=== PATIENT | male | born 1950 | race Caucasian/White ===

== ENCOUNTER 2023-06-03 20:12 | Observation (INO) | payer MEDICARE, SELFPAY ==
[2023-06-03] VITALS (16 sets, daily range): BP systolic 139–163; BP diastolic 89–104; PULSE 78–90; RESP 12–16; TEMP 36.7; O2SAT 92–98; BMI 25.8
--- NOTE | 2023-06-03 20:35 | CRLHL7_ITS ---
For Patients: As a result of the Century Cures Act, medical imaging exams and procedure reports are released immediately into your electronic medical record. You may view this report before your referring provider. If you have questions, please contact your health care provider. INDICATION: Amnesia TECHNIQUE: CT Head without i.v. contrast. Coronal and sagittal reformats were obtained. COMPARISON: None FINDINGS: CSF space: Unremarkable for age. Brain: There is a trace left anterior parafalcine subdural hematoma and trace left frontal temporal subdural hematoma noted measuring 2 mm. No mass-effect or midline shift is seen. Mild diffuse cortical atrophy is noted. The brain parenchyma is otherwise normal in appearance with preservation of the mendez-white matter junction. Calvarium: The visualized paranasal sinuses are well aerated. The mastoid air cells are clear. The visualized orbits are grossly unremarkable. The calvarium is unremarkable in appearance with no fractures identified. IMPRESSION: 1. There is a trace left anterior parafalcine subdural hematoma and trace left frontal temporal subdural hematoma noted measuring 2 mm. The findings were discussed with Dr. Parra at 9:11 PM. Dictated by Robert Flores MD @ 06/03/2023 9:10:16 PM Please note that all CT scans at this facility use dose modulation, iterative reconstruction, and/or weight-based dosing when appropriate to reduce radiation dose to as low as reasonably achievable. Dictated by: Robert Flores MD @ 06/03/2023 21:13:01 (Electronically Signed)
--- NOTE | 2023-06-03 20:37 | ED.NEUROSD ---
HPI - Neuro Symptoms/Deficit General Time Seen by Provider: 20:37 Date Seen: 06/03/23 Chief Complaint: Neuro Symptoms/Altered Deficit Stated Complaint: Sudden memory loss Time Seen by Provider: 06/03/23 20:21 Source: patient and family Mode of arrival: ambulatory Limitations: no limitations History of Present Illness HPI Narrative: 72-year-old male who comes in today with memory problems. Last known normal was 6:00 p.m., at about 720 p.m. it was noted by family that patient seemed confused. Patient is in town for a wedding, recognizes the person for whom the wedding is being given but not the fiance, cannot tell me how long he has been in town. Repetitive questioning during the interview. Denies headache, vision changes, chest pain, numbness tingling in arms or legs, weakness. Related Data Home Medications Medication Instructions Recorded Confirmed omeprazole 40 mg capsule,delayed 40 mg PO DAILY 06/03/23 06/03/23 release Previous Rx's Medication Instructions Recorded metoprolol tartrate 25 mg tablet 12.5 mg (1/2 x 25 mg) PO BID 14 06/04/23 days #14 tabs Allergies Allergy/AdvReac Type Severity Reaction Status Date / Time No Known Drug Allergies Allergy Verified 06/03/23 20:29 [facility] Medical History (Updated 06/04/23 @ 17:01 by Imelda Kurtz MD) Scoliosis ?M41.9 - Scoliosis, unspecified (ICD-10) Prostate cancer ?C61 - Malignant neoplasm of prostate (ICD-10) GERD (gastroesophageal reflux disease) ?K21.9 - Gastro-esophageal reflux disease without esophagitis (ICD-10) Surgical History (Updated 06/04/23 @ 14:09 by Imelda Kurtz MD) History of prostatectomy ?Z90.79 - Acquired absence of other genital organ(s) (ICD-10) Social History (Updated 06/04/23 @ 17:00 by Imelda Kurtz MD) Narrative: Lives in [place], [place]. 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 What is your current living situation?: I presently have a place to live Problems where you live: no known problems Problems where you live details: no known problems In the past 12 months, utilities in danger of being shut off: no In the past 12 mos, have been you worried that your food would run out before you had money to buy more?: never true In the past 12 mos, the food you bought just didn't last and you didn't have money to buy more?: never true Smoking Status: Never smoker Do you use any of these nicotine containing products: None Second hand tobacco smoke exposure: No How often do you have a drink containing alcohol: never AUDIT-C Alcohol total score: 0 Non-prescribed substance use: denies use Caffeine: Yes (Soda) How often does anyone, including family, friends and others, physically hurt you: never How often does anyone, including family, friends and others, insult or talk down to you: never How often does anyone, including family, friends and others, threaten you with harm: never How often does anyone, including family, friends and others, scream or curse at you: never service: No Exam Narrative: Exam Narrative: General: Well-developed and well-nourished, no acute distress Head: Atraumatic and normocephalic Eyes: Pupils are equal reactive, extraocular motions intact, conjunctiva clear ENT: External nose and ears are normal, posterior pharynx without erythema or exudate Neck: No midline cervical tenderness, full spontaneous range of motion the neck, trachea midline, no adenopathy Heart: Regular rate and rhythm no murmurs or thrills Lungs: Clear to auscultation bilaterally without wheezes or crackles Abdomen: Soft, nontender, nondistended with active bowel sounds Musculoskeletal: No tenderness, deformity, or edema Neurologic: Awake, alert, repetitive questioning and not oriented to place or time, no gross focal neurologic deficits, cranial nerves intact as tested. No visual field deficits, sensation intact throughout. NIHSS 0 Psych: Mood and affect are appropriate Skin: No rashes Const: Vital Signs, click to edit/add: Vital Signs - 24 hr 06/03/23 20:15 06/03/23 20:17 06/03/23 20:26 Temperature 98.0 F Pulse Rate 89 Pulse Rate [Right Pulse Oximeter] 90 Respiratory Rate 16 16 Blood Pressure 163/98 H Blood Pressure [Ri ght Upper Arm] 163/96 H Pulse Oximetry 92 95 Oxygen Delivery Me thod Room Air Room Air 06/03/23 20:26 06/03/23 20:26 06/03/23 20:30 Temperature Pulse Rate 87 Pulse Rate [Right Pulse Oximeter] Respiratory Rate 12 Blood Pressure 159/99 H Blood Pressure [Ri ght Upper Arm] Pulse Oximetry 93 93 93 Oxygen Delivery Me thod Room Air 06/03/23 20:45 06/03/23 21:00 06/03/23 21:16 Temperature Pulse Rate 85 82 82 Pulse Rate [Right Pulse Oximeter] Respiratory Rate 14 12 14 Blood Pressure 150/94 H 142/93 H 140/92 H Blood Pressure [Ri ght Upper Arm] Pulse Oximetry 93 98 97 Oxygen Delivery Me thod 06/03/23 21:31 06/03/23 21:46 06/03/23 22:02 Temperature Pulse Rate 83 84 84 Pulse Rate [Right Pulse Oximeter] Respiratory Rate 12 12 16 Blood Pressure 144/95 H 153/97 H 150/93 H Blood Pressure [Ri ght Upper Arm] Pulse Oximetry 96 94 96 Oxygen Delivery Me thod 06/03/23 22:16 06/03/23 22:31 06/03/23 22:47 Temperature Pulse Rate 86 84 80 Pulse Rate [Right Pulse Oximeter] Respiratory Rate 12 Blood Pressure 139/89 162/99 H 162/104 H Blood Pressure [Ri ght Upper Arm] Pulse Oximetry 94 96 94 Oxygen Delivery Me thod 06/03/23 23:01 06/03/23 23:16 06/03/23 23:32 Temperature Pulse Rate 78 79 82 Pulse Rate [Right Pulse Oximeter] Respiratory Rate 12 Blood Pressure 155/99 H 161/98 H 151/99 H Blood Pressure [Ri ght Upper Arm] Pulse Oximetry 95 95 94 Oxygen Delivery Me thod Course Course Hospital Course: Patient seen and examined, prior records are reviewed. Patient presents with altered mental status, memory problems. No focal weakness, facial asymmetry, decreased sensation, or visual field deficit. Symptoms seem most consistent with transient global amnesia. Care was discussed with Dr. Gonzalez, stroke Neurology who agrees with assessment but recommends follow through with CT and CTA as well as MRI tomorrow. Reevaluation(s) Time of Reevaluation #1: 21:15 Reevaluation #1: Discussed head CT with Dr. Gonzalez, there is a trace parafalcine subdural hematoma and trace left frontal temporal subdural measuring 2 mm. Recommends consultation with Neurosurgery, patient will need to be transferred. Blood pressure is 142/93 and stable, will keep head of bed up. Labs independently and interpreted by me demonstrates normal basic panel, reassuring CBC, normal INR. Discussed finding with family, agreeable to transfer to [place] if beds available. Spoke with Dr. Gardner at [facility], does not recommend transfer at this time. Does recommend repeat CT scan in 6 hours. Time of Reevaluation #2: 00:39 Reevaluation #2: Patient remains stable although blood pressure is a little higher than earlier. Will continue to monitor. Repeat head CT read demonstrates trace parafalcine and left frontal temporal subdural hematoma unchanged from prior exam. Will continue to monitor patient and consider more aggressive blood pressure control. Had a long conversation with patient and family. His symptoms are little bit better although still marked amnesia for events of the past couple of days. Time of Reevaluation #3: 01:27 Reevaluation #3: Discussed with Dr. Cali who recommends blood pressure control to maintain systolic less than 140, does not feel transfer is needed as patient would be observed for blood pressure management and further evaluation in the morning, consider MRI. Labetalol IV ordered, care discussed with Jun e-hospitalist who accepts patient for admission. We discussed need for continued blood pressure management. Vital Signs Vital signs: Initial Vital Signs Pulse Rate 89 06/03/23 20:15 Respiratory Rate 16 06/03/23 20:15 Pulse Oximetry 92 06/03/23 20:15 Oxygen Delivery Method Room Air 06/03/23 20:15 Vital Signs Pulse Rate 89 06/03/23 20:15 Respiratory Rate 16 06/03/23 20:15 Pulse Oximetry 92 06/03/23 20:15 Oxygen Delivery Method Room Air 06/03/23 20:15 Temperature 97.9 F 06/04/23 11:00 Pulse Rate 64 06/04/23 15:00 Respiratory Rate 16 06/04/23 15:00 Blood Pressure 133/94 H 06/04/23 15:00 Pulse Oximetry 98 06/04/23 15:00 Oxygen Delivery Method Room Air 06/04/23 15:00 MDM - Neuro Symptoms/Deficit Lab Data Labs: Lab Results 06/03/23 06/03/23 06/03/23 Range/Units 20:20 20:35 21:26 WBC 6.48 (4.50-11.00) K/uL RBC 5.13 (4.30-5.90) m/uL Hgb 15.1 (13.5-17.5) gm/dL Hct 45.1 (37.0-53.0) % MCV 88 (80-100) fL MCH 29 (26-34) pg MCHC 34 (32-36) gm/dL RDW Coeff of [place] 13.6 (11.5-15.5) % Plt Count 211 (140-440) K/uL Neut % (Auto) 60.0 (42.0-72.0) % Lymph % (Auto) 30.7 (20-44) % [place] % (Auto) 7.6 (0.0-11.0) % Eos % (Auto) 1.1 (0.0-7.0) % Baso % (Auto) 0.3 (0.0-3.0) % Neut # (Auto) 3.89 (1.7-7.0) K/uL Lymph # (Auto) 1.99 (0.90-2.90) K/uL [place] # (Auto) 0.50 (0.00-0.90) K/UL Eos # (Auto) 0.07 (0.00-0.50) K/uL Baso # (Auto) 0.02 (0.00-0.30) K/uL Abs Immat Gran (auto) 0.02 (0.00-0.30) K/uL Imm/Tot Granulo (auto) 0.3 % INR 0.94 (0.91-1.10) APTT 28 (23-33) Seconds Sodium 142 (135-149) mmol/L Potassium 4.0 (3.6-5.1) mmol/L Chloride 105 (96-114) mmol/L Carbon Dioxide 30 (20-32) mmol/L BUN 26 (7-30) mg/dL Creatinine 1.3 (0.5-1.5) mg/dL Estimated Creat Clear 54.59 Estimated GFR 59 ml/min Glucose 124 H (60-115) mg/dL Calcium 9.5 (8.4-10.6) mg/dL Ethyl Alcohol < 0.01 L (0.01-0.03) % Lab Acknowledgement Test Added ECG Data Attestation: I personally reviewed and interpreted this ECG as follows: ECG interpretation date: 06/03/23 ECG interpretation time: 20:28 Prior ECG tracings: not available for review Interpretation: Normal sinus rhythm rate 89, normal intervals, normal axis, nonspecific ST T-wave changes, QTC 442. Critical Care Time Critical Care Time Critical Care Time: Yes (Intracranial hemorrhage) Attestation: The patient required my highest level preparedness to intervene emergently and I personally spent this critical care time directly and personally managing the patient. This critical care time included: Obtaining a history; Examining the patient; Pulse oximetry; Ordering and reviewing of studies; Arranging urgent treatment with development of a management plan; Evaluation of patients response to treatment; Frequent reassessment discussions with other providers. This critical care time was performed to assess and manage the high probability of imminent life-threatening deterioration that could result in multiorgan failure. It was exclusive of separate billable procedures and treating other patients and teaching time. Prolonged critical care due to prolonged observation. In the emergency department with frequent neuro checks and discussion with family Total Critical Care Time in Minutes: 180 Discharge Plan Discharge Clinical Impression: Acute subdural hematoma, TGA (transient global amnesia) Patient Disposition: Admitted As Observation Condition: Stable Activity Level: No strenuous activity Discharge Diet: Regular
[2023-06-03 20:49] LABS: Basophils Absolute Auto 0.02 K/uL (0.00-0.30); Basophils Percent Auto 0.3 % (0.0-3.0); Eosinophils Absolute Auto 0.07 K/uL (0.00-0.50); Eosinophils Percent Auto 1.1 % (0.0-7.0); Hematocrit 45.1 % (37.0-53.0); Hemoglobin* 15.1 gm/dL (13.5-17.5); Immature Granulocytes Abs Auto 0.02 K/uL (0.00-0.30); Immature Granulocytes Pct Auto 0.3 %; Lymphocytes Absolute Auto 1.99 K/uL (0.90-2.90); Lymphocytes Percent Auto 30.7 % (20-44); Mean Corpuscular HGB Conc 34 gm/dL (32-36); Mean Corpuscular Hemoglobin 29 pg (26-34); Mean Corpuscular Volume 88 fL (80-100); Monocytes Percent Auto 7.6 % (0.0-11.0); Neutrophils Absolute Auto 3.89 K/uL (1.7-7.0); Platelet Count* 211 K/uL (140-440); RDW Coefficient of Variation % 13.6 % (11.5-15.5); Red Blood Count 5.13 m/uL (4.30-5.90); White Blood Count* 6.48 K/uL (4.50-11.00)
[2023-06-03 20:50] LABS: Slide Review Reflex No
[2023-06-03 20:52] LABS: Chloride* 105 mmol/L (96-114); Sodium* 142 mmol/L (135-149)
[2023-06-03 20:54] LABS: Creatinine* 1.3 mg/dL (0.5-1.5); Est. Creatinine Clearance* 54.59; Estimated Glomerular Filt Rate 59 ml/min
[2023-06-03 20:54] LABS: INR 0.94 (0.91-1.10); Prothrombin Time 13.1 Seconds
[2023-06-03 20:55] LABS: Blood Urea Nitrogen* 26 mg/dL (7-30); Calcium* 9.5 mg/dL (8.4-10.6); Carbon Dioxide* 30 mmol/L (20-32); Glucose* 124 mg/dL (60-115)
[2023-06-03 20:55] LABS: Partial Thromboplastin Time* 28 Seconds (23-33)
--- NOTE | 2023-06-03 20:57 | ED.NURSE ---
2015-#18G IV established in R AC by ETHEL Patricio. Blood work drawn. 2017-MD notified by ETHEL Magaña. Imaging notified. [facility] notified by EDT. 2023-MD at bedside. NIHSS 0 per MD. 2025- BG 130, done by EDT. EKG done. 2034- Pt to imaging. Delay d/t trauma patient in CT and only 1 pc tech staffed.
--- NOTE | 2023-06-03 21:54 | ED.NURSE ---
Pt assisting Pt in relaxation techniques. No change in neuro deficits, Pt denies CHUN. VSS on RA at this time. Pt's family educated on signs/symptoms to alert RN, aware of plan for repeat CT at 0230. Call light within reach of Pt and family.
[2023-06-03 21:58] LABS: Ethanol* < 0.01 % (0.01-0.03)
--- NOTE | 2023-06-03 23:52 | ED.NURSE ---
Brief changed. Able to ambulate to BR, tolerates well. Continues to repeat questions, unable to recall recent events. Remains calm and cooperative, pleasant. Resting on cot at this time.
--- NOTE | 2023-06-03 23:54 | ED.NURSE ---
NIHSS score: 1 by RN. Unable to answer both questions correctly: month (incorrect) and age (answered correctly).
[2023-06-04] VITALS (10 sets, daily range): BP systolic 133–162; BP diastolic 86–108; PULSE 56–81; RESP 16; TEMP 36.5–36.7; O2SAT 92–98; BMI 24.9
--- NOTE | 2023-06-04 00:02 | ED.NURSE ---
Report given to ETHEL Magaña.
--- NOTE | 2023-06-04 00:13 | CRLHL7_ITS ---
For Patients: As a result of the Cures Act, medical imaging exams and procedure reports are released immediately into your electronic medical record. You may view this report before your referring provider. If you have questions, please contact your health care provider. INDICATION: Subdural hematoma, change in mentation, amnesia TECHNIQUE: CT Head without i.v. contrast. Coronal and sagittal reformats were obtained. COMPARISON: 06/03/2023 FINDINGS: CSF space: Unremarkable for age. Brain: A trace parafalcine and left frontal temporal subdural hematoma is present and not significantly changed from prior exam. No mass-effect or midline shift is seen. Mild diffuse cortical atrophy is noted. The brain parenchyma is otherwise normal in appearance with preservation of the mendez-white matter junction. Calvarium: The visualized paranasal sinuses are well aerated. The mastoid air cells are clear. The visualized orbits are grossly unremarkable. The calvarium is unremarkable in appearance with no fractures identified. IMPRESSION: 1. A trace parafalcine and left frontal temporal subdural hematoma is present and not significantly changed from prior exam. Dictated by Robert Flores MD @ 06/04/2023 12:38:17 AM Please note that all CT scans at this facility use dose modulation, iterative reconstruction, and/or weight-based dosing when appropriate to reduce radiation dose to as low as reasonably achievable. Dictated by: Robert Flores MD @ 06/04/2023 00:38:20 (Electronically Signed)
[2023-06-04] MEDS: LABETALOL HCL 5 MG/ML inj IVP (01:22)
--- NOTE | 2023-06-04 02:30 | CRLHL7_ITS ---
For Patients: As a result of the Century Cures Act, medical imaging exams and procedure reports are released immediately into your electronic medical record. You may view this report before your referring provider. If you have questions, please contact your health care provider. INDICATION: Subdural hematoma, amnesia TECHNIQUE: CT Head without i.v. contrast. Coronal and sagittal reformats were obtained. COMPARISON: 06/03/2023 FINDINGS: CSF space: Unremarkable for age. Brain: The trace parafalcine subdural hematoma is unchanged. Trace subdural hematoma over the left cerebral convexity is not well-demonstrated on the current exam. No mass-effect or midline shift is seen. Mild diffuse cortical atrophy is noted. The brain parenchyma is otherwise normal in appearance with preservation of the mendez-white matter junction. Calvarium: The visualized paranasal sinuses are well aerated. The mastoid air cells are clear. The visualized orbits are grossly unremarkable. The calvarium is unremarkable in appearance with no fractures identified. IMPRESSION: 1. The trace parafalcine subdural hematoma is unchanged. Trace subdural hematoma over the left cerebral convexity is not well-demonstrated on the current exam. Dictated by Robert Flores MD @ 06/04/2023 2:50:25 AM Please note that all CT scans at this facility use dose modulation, iterative reconstruction, and/or weight-based dosing when appropriate to reduce radiation dose to as low as reasonably achievable. Dictated by: Robert Flores MD @ 06/04/2023 02:50:49 (Electronically Signed)
[2023-06-04] MEDS: ACETAMINOPHEN 500 MG TABLET 1000 MG PO (03:14)
--- NOTE | 2023-06-04 04:01 | CRLHL7_ITS ---
For Patients: As a result of the Century Cures Act, medical imaging exams and procedure reports are released immediately into your electronic medical record. You may view this report before your referring provider. If you have questions, please contact your health care provider. INDICATION: TECHNIQUE: Sagittal T1 axial FLAIR T2 diffusion-weighted and susceptibility weighted images of the brain. COMPARISON: CT scans 06/04/2023 and 06/03/2023. Findings : A very thin subdural collection extends over the left posterior frontal, parietal and lateral occipital convexities. This measures approximately 2 mm in thickness. There is no mass effect. There is no midline shift. No evidence of acute ischemic infarction. No diffusion restriction. Few punctate foci of FLAIR/T2 hyperintensity consistent with mild chronic microvascular ischemia brainstem and cerebellum appear normal. Orbits sella turcica paranasal sinuses and skullbase are unremarkable. IMPRESSION: 1. Very thin subdural collection extends over the left cerebral convexity without mass effect. Findings would be consistent with recent head trauma, anticoagulant therapy or coagulopathy. 2. Follow-up imaging to resolution is recommended. 3. Findings discussed with Dr. Foster at 12:30 p.m. Dictated by Jordy Cuellar MD @ 06/04/2023 12:42:53 PM (Electronically Signed)
--- NOTE | 2023-06-04 04:03 | P.IMCN_ITS ---
Date of Consult Consult date: 06/04/23 Primary Care Provider: Not a Local Provider Consult Narrative Narrative: Jun Miles Hospitalist eHospitalist was contacted with request of consultation on Wood Mcgraw. 72-year-old gentleman with no significant active past medical history, no history of seizure, no history of stroke who presented to the hospital with sudden onset of memory loss. Patient flew to [place] to attend his son's wedding and he was noted today by his family to be unable to remember anything. This happened suddenly. No reported headache, blurring of vision, nausea or vomiting at that time. No reported issues with limb weakness or numbness. According to his family, his memory is significantly improving at this time. According to the best of patient's ability to remember as well as his family's information, patient is not on chronic NSAIDs, antiplatelets, blood thinners and he has no history of brain bleed in the past. No reported trauma or any evidence of trauma up to their best knowledge. Patient denies alcohol intake. Home Medications: see EMR Pertinent Medical History: See EMR Pertinent Social History: See EMR Exam (performed via interactive video with assistance of bedside nurse; Mana): General: alert, cooperative, no acute distress HEENT: oral mucosa pink and moist without erythema Lungs: clear to auscultation bilaterally without crackle or wheeze CV: regular rate and rhythm without loud murmur rub or gallop Abd: denies tenderness and does not exhibit signs of pain with palpation done by bedside nurse Ext: no pitting edema noted Skin: no rashes, bruises or lesions. Neuro: alert, oriented x 3. Mildly impaired short memory. No major focal deficit on gross neurologic exam. Labs and imaging were reviewed. Assessment and Plan: Acute short term memory loss; likely TGA Acute minimal SDH Patient's presentation is likely consistent with transient global amnesia, it appears that his symptoms are significantly improving at this time and hopefully as I explained to the family it should be completely resolved in the coming 24 hours I do not think his reported subdural hematoma is causing his symptoms. I think it is an incidental findings and multiple CT scans obtained in ED showed stability. Although stroke is unlikely to cause TGA, I think it is reasonable to obtain MRI with and without contrast to rule out that possibility completely. We will avoid narcotics and NSAIDs at this time Thank you for including Jun Handley in the patients care. This service is available for further assistance as requested by your care team by calling [phone]. [facility] Social History Smoking Status: Never smoker Do you use any of these nicotine containing products: None How often do you have a drink containing alcohol: never AUDIT-C Alcohol total score: 0 Non-prescribed substance use: denies use Meds Home Medications and Allergies Home Medications Medication Instructions Recorded Confirmed Type omeprazole 40 mg capsule,delayed 40 mg PO DAILY 06/03/23 06/03/23 History release Allergies Allergy/AdvReac Type Severity Reaction Status Date / Time No Known Drug Allergies Allergy Verified 06/03/23 20:29 Exam Const: Vital Signs, click to edit/add: Vital Signs - 24 hr 06/03/23 20:15 06/03/23 20:17 06/03/23 20:26 Temperature 98.0 F Pulse Rate 89 Pulse Rate [Right Pulse Oximeter] 90 Respiratory Rate 16 16 Blood Pressure 163/98 H Blood Pressure [Ri ght Upper Arm] 163/96 H Pulse Oximetry 92 95 Oxygen Delivery Me thod Room Air Room Air 06/03/23 20:26 06/03/23 20:26 06/03/23 20:30 Temperature Pulse Rate 87 Pulse Rate [Right Pulse Oximeter] Respiratory Rate 12 Blood Pressure 159/99 H Blood Pressure [Ri ght Upper Arm] Pulse Oximetry 93 93 93 Oxygen Delivery Me thod Room Air 06/03/23 20:45 06/03/23 21:00 06/03/23 21:16 Temperature Pulse Rate 85 82 82 Pulse Rate [Right Pulse Oximeter] Respiratory Rate 14 12 14 Blood Pressure 150/94 H 142/93 H 140/92 H Blood Pressure [Ri ght Upper Arm] Pulse Oximetry 93 98 97 Oxygen Delivery Me thod 06/03/23 21:31 06/03/23 21:46 06/03/23 22:02 Temperature Pulse Rate 83 84 84 Pulse Rate [Right Pulse Oximeter] Respiratory Rate 12 12 16 Blood Pressure 144/95 H 153/97 H 150/93 H Blood Pressure [Ri ght Upper Arm] Pulse Oximetry 96 94 96 Oxygen Delivery Me thod 06/03/23 22:16 06/03/23 22:31 06/03/23 22:47 Temperature Pulse Rate 86 84 80 Pulse Rate [Right Pulse Oximeter] Respiratory Rate 12 Blood Pressure 139/89 162/99 H 162/104 H Blood Pressure [Ri ght Upper Arm] Pulse Oximetry 94 96 94 Oxygen Delivery Me thod 06/03/23 23:01 06/03/23 23:16 06/03/23 23:32 Temperature Pulse Rate 78 79 82 Pulse Rate [Right Pulse Oximeter] Respiratory Rate 12 Blood Pressure 155/99 H 161/98 H 151/99 H Blood Pressure [Ri ght Upper Arm] Pulse Oximetry 95 95 94 Oxygen Delivery Me thod 06/04/23 00:01 06/04/23 00:32 06/04/23 01:01 Temperature Pulse Rate 81 73 74 Pulse Rate [Right Pulse Oximeter] Respiratory Rate 16 16 16 Blood Pressure 158/100 H 162/101 H 145/107 H Blood Pressure [Ri ght Upper Arm] Pulse Oximetry 92 94 94 Oxygen Delivery Me thod 06/04/23 01:32 06/04/23 02:01 06/04/23 03:14 Temperature 98.0 F Pulse Rate 71 68 Pulse Rate [Right Pulse Oximeter] Respiratory Rate 16 16 Blood Pressure 147/94 H 143/102 H Blood Pressure [Ri ght Upper Arm] Pulse Oximetry 93 94 Oxygen Delivery Me thod Labs Labs: Short CBC 06/03/23 Range/Units 20:35 WBC 6.48 (4.50-11.00) K/uL Hgb 15.1 (13.5-17.5) gm/dL Hct 45.1 (37.0-53.0) % Plt Count 211 (140-440) K/uL BMP 06/03/23 20:20 Sodium 142 Potassium 4.0 Chloride 105 Carbon Dioxide 30 BUN 26 Creatinine 1.3 Glucose 124 H Calcium 9.5
[2023-06-04 06:38] LABS: Basophils Absolute Auto 0.01 K/uL (0.00-0.30); Basophils Percent Auto 0.2 % (0.0-3.0); Eosinophils Absolute Auto 0.08 K/uL (0.00-0.50); Eosinophils Percent Auto 1.3 % (0.0-7.0); Hematocrit 41.6 % (37.0-53.0); Hemoglobin* 13.8 gm/dL (13.5-17.5); Immature Granulocytes Abs Auto 0.01 K/uL (0.00-0.30); Immature Granulocytes Pct Auto 0.2 %; Lymphocytes Percent Auto 26.4 % (20-44); Mean Corpuscular HGB Conc 33 gm/dL (32-36); Mean Corpuscular Hemoglobin 29 pg (26-34); Mean Corpuscular Volume 88 fL (80-100); Monocytes Percent Auto 10.6 % (0.0-11.0); Neutrophils Absolute Auto 3.71 K/uL (1.7-7.0); Neutrophils Percent Auto 61.3 % (42.0-72.0); Platelet Count* 188 K/uL (140-440); RDW Coefficient of Variation % 13.8 % (11.5-15.5); Red Blood Count 4.72 m/uL (4.30-5.90); White Blood Count* 6.05 K/uL (4.50-11.00)
[2023-06-04 06:40] LABS: Slide Review Reflex No
[2023-06-04 07:04] LABS: Albumin* 3.8 g/dL (3.3-5.0); Chloride* 104 mmol/L (96-114); Potassium* 3.6 mmol/L (3.6-5.1); Sodium* 140 mmol/L (135-149)
[2023-06-04 07:07] LABS: Alanine Aminotransferase* 26 U/L (4-50); Alkaline Phosphatase* 40 U/L (40-150); Aspartate Amino Transferase* 27 U/L (12-35); Bilirubin Total* 0.7 mg/dL (0.1-1.5); Blood Urea Nitrogen* 22 mg/dL (7-30); Carbon Dioxide* 30 mmol/L (20-32); Creatinine* 1.1 mg/dL (0.5-1.5); Est. Creatinine Clearance* 64.52; Estimated Glomerular Filt Rate 72 ml/min; Glucose* 90 mg/dL (60-115); Total Protein* 6.5 g/dL (6.0-8.3)
[2023-06-04 07:08] LABS: Calcium* 8.7 mg/dL (8.4-10.6)
--- NOTE | 2023-06-04 07:29 | PC.NURSE ---
Pt alert and oriented to self and place. Pt can tell its night but not what time, he is able to recognize his son and soon to be [id number] but cannot remember how long he has been in [place] or that he took a plan from [place] to [place] for his son?s wedding. Pt reports 7/10 headache upon admission at 0310 MD aware, Tylenol given in ED before admitting to Med Surg unit. At the end of admission he reports pain being ?mostly gone?. Pt is up SBA, gait is stable. Pt has baseline incontinence of urine after a prostate surgery. Pt and family report he wears briefs at home. It is noted that pt has ray skin on either side of groin area pt reports it is ?chafing? from his home briefs and his primary MD is aware and he puts a cream on it.?
--- NOTE | 2023-06-04 13:34 | P.DS_ITS ---
DS: Providers Provider Date of admission: 06/04/23 03:01 Primary care physician: Not a Local Provider Admitting Clinician: Shawna Loera MD Attending Physician on discharge: Shawna Loera MD DS: Summary Hospital Course Hospital Course: Patient seen and examined, prior records are reviewed. Patient presents with altered mental status, memory problems. No focal weakness, facial asymmetry, decreased sensation, or visual field deficit. Symptoms seem most consistent with transient global amnesia. Care was discussed with Dr. Gonzalez, stroke Neurology who agrees with assessment but recommends follow through with CT and CTA as well as MRI tomorrow. Time Spent with Patient Time attestation: Total time spent providing and/or coordinating discharge services: Exam Const: Vital Signs, click to edit/add: Vital Signs - 24 hr 06/03/23 20:15 06/03/23 20:17 06/03/23 20:26 Temperature 98.0 F Pulse Rate 89 Pulse Rate [Right Pulse Oximeter] 90 Respiratory Rate 16 16 Blood Pressure 163/98 H Blood Pressure [Ri ght Upper Arm] 163/96 H Pulse Oximetry 92 95 Oxygen Delivery Me thod Room Air Room Air 06/03/23 20:26 06/03/23 20:26 06/03/23 20:30 Temperature Pulse Rate 87 Pulse Rate [Right Pulse Oximeter] Respiratory Rate 12 Blood Pressure 159/99 H Blood Pressure [Ri ght Upper Arm] Pulse Oximetry 93 93 93 Oxygen Delivery Me thod Room Air 06/03/23 20:45 06/03/23 21:00 06/03/23 21:16 Temperature Pulse Rate 85 82 82 Pulse Rate [Right Pulse Oximeter] Respiratory Rate 14 12 14 Blood Pressure 150/94 H 142/93 H 140/92 H Blood Pressure [Ri ght Upper Arm] Pulse Oximetry 93 98 97 Oxygen Delivery Me thod 06/03/23 21:31 06/03/23 21:46 06/03/23 22:02 Temperature Pulse Rate 83 84 84 Pulse Rate [Right Pulse Oximeter] Respiratory Rate 12 12 16 Blood Pressure 144/95 H 153/97 H 150/93 H Blood Pressure [Ri ght Upper Arm] Pulse Oximetry 96 94 96 Oxygen Delivery Me thod 06/03/23 22:16 06/03/23 22:31 06/03/23 22:47 Temperature Pulse Rate 86 84 80 Pulse Rate [Right Pulse Oximeter] Respiratory Rate 12 Blood Pressure 139/89 162/99 H 162/104 H Blood Pressure [Ri ght Upper Arm] Pulse Oximetry 94 96 94 Oxygen Delivery Me thod 06/03/23 23:01 06/03/23 23:16 06/03/23 23:32 Temperature Pulse Rate 78 79 82 Pulse Rate [Right Pulse Oximeter] Respiratory Rate 12 Blood Pressure 155/99 H 161/98 H 151/99 H Blood Pressure [Ri ght Upper Arm] Pulse Oximetry 95 95 94 Oxygen Delivery Me thod 06/04/23 00:01 06/04/23 00:32 06/04/23 01:01 Temperature Pulse Rate 81 73 74 Pulse Rate [Right Pulse Oximeter] Respiratory Rate 16 16 16 Blood Pressure 158/100 H 162/101 H 145/107 H Blood Pressure [Ri ght Upper Arm] Pulse Oximetry 92 94 94 Oxygen Delivery Me thod 06/04/23 01:32 06/04/23 02:01 06/04/23 03:10 Temperature 97.7 F Pulse Rate 71 68 Pulse Rate [Right Pulse Oximeter] Respiratory Rate 16 16 16 Blood Pressure 147/94 H 143/102 H Blood Pressure [Ri ght Upper Arm] Pulse Oximetry 93 94 96 Oxygen Delivery Me thod Room Air 06/04/23 03:10 06/04/23 03:14 Temperature 98.0 F Pulse Rate Pulse Rate [Right Pulse Oximeter] Respiratory Rate 16 Blood Pressure Blood Pressure [Ri ght Upper Arm] Pulse Oximetry 96 Oxygen Delivery Me thod Room Air DS: Data Data Completed and Pending Labs on day of discharge: Labs from last 24 hours 06/04/23 06/03/23 06/03/23 05:43 21:26 20:35 WBC 6.05 6.48 RBC 4.72 5.13 Hgb 13.8 15.1 Hct 41.6 45.1 MCV 88 88 MCH 29 29 MCHC 33 34 RDW Coeff of [place] 13.8 13.6 Plt Count 188 211 Neut % (Auto) 61.3 60.0 Lymph % (Auto) 26.4 30.7 [place] % (Auto) 10.6 7.6 Eos % (Auto) 1.3 1.1 Baso % (Auto) 0.2 0.3 Neut # (Auto) 3.71 3.89 Lymph # (Auto) 1.60 1.99 [place] # (Auto) 0.60 0.50 Eos # (Auto) 0.08 0.07 Baso # (Auto) 0.01 0.02 Abs Immat Gran (auto) 0.01 0.02 Imm/Tot Granulo (auto) 0.2 0.3 INR 0.94 APTT 28 Sodium 140 Potassium 3.6 Chloride 104 Carbon Dioxide 30 BUN 22 Creatinine 1.1 Estimated Creat Clear 64.52 Estimated GFR 72 Glucose 90 Calcium 8.7 Total Bilirubin 0.7 AST 27 ALT 26 Alkaline Phosphatase 40 Total Protein 6.5 Albumin 3.8 Ethyl Alcohol Lab Acknowledgement Test Added 06/03/23 20:20 WBC RBC Hgb Hct MCV MCH MCHC RDW Coeff of [place] Plt Count Neut % (Auto) Lymph % (Auto) [place] % (Auto) Eos % (Auto) Baso % (Auto) Neut # (Auto) Lymph # (Auto) [place] # (Auto) Eos # (Auto) Baso # (Auto) Abs Immat Gran (auto) Imm/Tot Granulo (auto) INR APTT Sodium 142 Potassium 4.0 Chloride 105 Carbon Dioxide 30 BUN 26 Creatinine 1.3 Estimated Creat Clear 54.59 Estimated GFR 59 Glucose 124 H Calcium 9.5 Total Bilirubin AST ALT Alkaline Phosphatase Total Protein Albumin Ethyl Alcohol < 0.01 L Lab Acknowledgement Discharge Plan Discharge Disposition: Home, Self-Care Date of Admission: 06/04/23 03:01 Attending Provider on Discharge: Imelda Kurtz Primary Care Provider: Provider,Not a Local Condition: Stable Anticipated Discharge Date/Time: 06/04/23 13:28 Discharge Medications: New metoprolol tartrate 25 mg tablet 12.5 mg PO BID 14 Days Qty: 14 0RF Continued omeprazole 40 mg capsule,delayed release(DR/EC) 40 mg PO DAILY Discharge Orders: Discharge Order (Routine); Ordered 06/04/23 Ordered By: Imelda Kurtz Additional Instructions: systems support officer metoprolol at [facility] and start tomorrow morning. If you need anything for headache, take Tylenol (no Ibuprofen or Aleve). Blood Pressure checks 1-2 times/day (goal is <140/90). If you have 3 consecutive days of Blood Pressure <120/80, you can stop the Metoprolol. Reasonable to have your repeat MRI done here before you go back to [place]. Take it easy this week - no activities that could cause another head injury. You must return to the ED with any new/worsening symptoms. Activity Level: No strenuous activity Discharge Diet: Regular Follow Up Appointments: Provider,Not a Local [Primary Care Provider] - Forms: Beyond Verbal Info Instructions
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
[2023-06-04] MEDS: METOPROLOL TARTRATE 25 MG TABLET 12.5 MG PO (14:42)
--- NOTE | 2023-06-04 16:21 | PC.NURSE ---
Nursing Care Hours: [id number] Pt this shift cooperative with cares. Restless in room, walking independently in room and multiple times in wei. Took a long shower and brushed teeth twice, once before shower and once after shower. Pt states he was aware but not aware he brushed teeth multiple times NOC in room as reported from night nurse. Answering questions appropriately, eating and drinking sufficiently. Metoprolol started for HTN. Education provided verbal and via print out. Scheduled for repeat MRI 06/17. IV removed, discharge instructions provided, pt ambulated off the unit in stable condition.
== END 2023-06-04 16:00 | disposition home or self-care (01) ==
LOC: ED 06-04 01:26 → MEDSURG 06-04 04:33
PROVIDERS: Student in an Organized Health Care Education/Training Program; Admitting Provider Family Medicine; Emergency Provider Family Medicine; Visit Provider Family Medicine
DX: S06.5XAA Traumatic subdural hemorrhage with loss of consciousness status unknown, initial encounter (principal); G45.4 Transient global amnesia
CPT/HCPCS: 36415; 70450; 70551; 80048; 80053; 82077; 82962; 85025; 85610; 85730; 93005; 94761; 99199; 99285; 99291; 99292; A9270; G0378

== ENCOUNTER 2023-06-17 07:00 | Outpatient (CLI) | payer MEDICARE, SELFPAY ==
--- NOTE | 2023-06-17 07:15 | CRLHL7_ITS ---
For Patients: As a result of the Cures Act, medical imaging exams and procedure reports are released immediately into your electronic medical record. You may view this report before your referring provider. If you have questions, please contact your health care provider. Indication: Transient global amnesia. Technique: Noncontrast sagittal T1 weighted, axial T2 fast spin echo, FLAIR, and diffusion weighted images of the head. Comparison: 06/04/2023 MRI Findings: Mild enlargement of the left temporoparietal subdural hematoma measuring up to 3 mm thickness. No significant mass effect on the underlying parenchyma. No midline shift. No hydrocephalus. Stable multiple scattered foci of FLAIR signal hyperintensity that likely represent chronic small vessel ischemic changes. Expected intracranial vascular flow voids are preserved. There is no evidence of diffusion restriction to suggest acute ischemia or transient global amnesia. No pathologic enhancement. Unremarkable scalp and soft tissues. The orbits are unremarkable. The paranasal sinuses are clear except for mild mucosal thickening in the right maxillary sinus. Leftward deviation of the nasal septum. Impression: 1. Slight enlargement of the left temporoparietal subdural hematoma without significant mass effect on underlying parenchyma. No midline shift. 2. No evidence of acute ischemia or transient global amnesia. Dictated by Wood Dwyer MD @ 06/17/2023 8:17:26 AM (Electronically Signed)
== END 2023-06-17 07:01 | disposition home or self-care (01) ==
PROVIDERS: Visit Provider Family Medicine
DX: G45.4 Transient global amnesia (principal); I61.9 Nontraumatic intracerebral hemorrhage, unspecified
CPT/HCPCS: 70551